=== PATIENT | female | born 1995 | race Caucasian/White ===

== ENCOUNTER 2019-04-01 10:10 | Emergency (ER) | payer BC ==
[2019-04-01] MEDS ORDERED: FLU Vacc QS2019-20(6MOS+)/PF 60 MCG/0.5 ML SYRINGE IM ONE (11:30)
[2019-04-01] MEDS ORDERED: Sodium Chloride 0.9% 10 ML Syringe FLUSH PRN (11:37)
--- NOTE | 2019-04-01 12:04 | EDM.PDOC ---
<Ashvin Chavez - Last Filed: 04/06/19 09:57> ED HPI GENERAL MEDICAL PROBLEM - General Chief Complaint: Eye Problems Stated Complaint: EYE COMPLAINT Time Seen by Provider: 04/01/19 11:20 - Related Data Allergies Allergy/AdvReac Type Severity Reaction Status Date / Time No Known Allergies Allergy Verified 04/01/19 10:44 Home Meds: Home Meds Cholecalciferol (Vitamin D3) [Vitamin D3] 5,000 unit PO DAILY 04/01/19 [History] FLUoxetine [PROzac] 60 mg PO DAILY 04/01/19 [History] Hydrocodone/Acetaminophen [Hydrocodon-Acetaminophen 5-325] 1 - 2 tab PO Q6HR PRN 04/01/19 [History] Levothyroxine 175 mcg PO DAILY 04/01/19 [History] Course - Vital Signs Last Recorded V/S: Last Vital Signs Temp 96.9 F 04/01/19 10:39 Pulse 86 04/01/19 10:39 Resp 18 04/01/19 10:39 BP 130/88 04/01/19 10:39 Pulse Ox 99 04/01/19 10:39 Orthostatic Blood Pressure [ 121/80 Standing] Orthostatic Blood Pressure [ 121/74 Sitting] Orthostatic Blood Pressure [ 111/73 Supine] - Orders/Labs/Meds Labs: Laboratory Tests 04/01/19 04/01/19 Range/Units 12:15 12:15 WBC 7.06 (3.98-10.04) K/mm3 RBC 4.66 (3.98-5.22) M/mm3 Hgb 14.1 (11.2-15.7) gm/dl Hct 41.7 (34.1-44.9) % MCV 89.5 (79.4-94.8) fl MCH 30.3 (25.6-32.2) pg MCHC 33.8 (32.2-35.5) g/dl RDW Std Deviation 44.6 (36.4-46.3) fL Plt Count 327 (182-369) K/mm3 MPV 9.0 L (9.4-12.3) fl Neut % (Auto) 50.7 (34.0-71.1) % Lymph % (Auto) 38.7 (19.3-51.7) % [place] % (Auto) 9.1 (4.7-12.5) % Eos % (Auto) 1.1 (0.7-5.8) Baso % (Auto) 0.3 (0.1-1.2) % Neut # (Auto) 3.58 (1.56-6.13) K/mm3 Lymph # (Auto) 2.73 (1.18-3.74) K/mm3 [place] # (Auto) 0.64 H (0.24-0.36) K/mm3 Eos # (Auto) 0.08 (0.04-0.36) K/mm3 Baso # (Auto) 0.02 (0.01-0.08) K/mm3 Sodium 138 (136-145) mEq/L Potassium 3.9 (3.5-5.1) mEq/L Chloride 102 (98-107) mEq/L Carbon Dioxide 27 (21-32) mEq/L Anion Gap 12.9 (5-15) BUN 12 (7-18) mg/dL Creatinine 0.6 (0.55-1.02) mg/dL Est Cr Clr Drug Dosing 134.18 mL/min Estimated GFR (MDRD) > 60 (>60) mL/min BUN/Creatinine Ratio 20.0 H (14-18) Glucose 88 (74-106) mg/dL Calcium 8.9 (8.5-10.1) mg/dL Total Bilirubin 0.2 (0.2-1.0) mg/dL AST 15 (15-37) U/L ALT 25 (14-59) U/L Alkaline Phosphatase 89 (46-116) U/L Total Protein 8.1 (6.4-8.2) g/dl Albumin 3.9 (3.4-5.0) g/dl Globulin 4.2 gm/dL Albumin/Globulin Ratio 0.9 L (1-2) Meds: Medications Discontinued Medications Generic Name Dose Route Start Last Admin Trade Name Freq PRN Reason Stop Dose Admin Gadobenate Dimeglumine 20 ml 04/01/19 13:37 04/01/19 14:34 Multihance IVPUSH 04/01/19 13:38 20 ml ONETIME ONE Administration Influenza Virus Vaccine 60 mcg 04/01/19 11:30 04/01/19 12:03 Fluzone Quad Syringe IM 04/01/19 11:31 60 mcg .ONCE ONE Administration Sodium Chloride 10 ml 04/01/19 11:37 04/01/19 12:02 Saline Flush FLUSH 10 ml ASDIRECTED PRN Administration Keep Vein Open Sodium Chloride 30 ml 04/01/19 13:45 04/01/19 14:34 Saline Flush FLUSH 30 ml ASDIRECTED JONATHAN Administration - Re-Assessments/Exams Free Text/Narrative Re-Assessment/Exam: 04/01/19 15:14 MRI brain with and without intravenous contrast. Comparison no prior intracranial imaging. Findings. Empty sella is noted. Residual enhancing tissue seen along the pituitary floor. No pituitary masses appreciated. Cavernous sinuses appear within normal limits. Infundibulum is slightly tilted to the right side which is likely residual from previous surgery. No abnormal enhancement is seen within the brain parenchyma. Ventricles along with the basal cisterns and sulci over the convexities are within normal limits. Normal signal void is seen within the major cerebral arteries within the base of the skull. Previous right cerebellar surgery is appreciated. No abnormal signal is seen from within the posterior fossa. No abnormal enhancement is seen within the cerebellum. Impression 1 empty sella compatible with previous surgery. 2 previous surgery within the right cerebellum with no persistent abnormal enhancement or abnormal signal. 3 no findings of recurrent tumor are seen at this time Departure - Departure Disposition: Home, Self-Care 01 Clinical Impression: Headache, Visual field defect of both eyes, History of pituitary adenoma - Discharge Information Instructions: General Headache Without Cause, [id number] Referrals: Cristina Cronin MD [Primary Care Provider] - Forms: ED Department Discharge Additional Instructions: MRI according to our Radiologist report does not show recurrent tumor at this time. Dr Aranda did see bilateral papilledema on your eye exam today. I would suggest calling the office of your Food Services Director, [facility] tomorrow AM for further guidance. You may also follow up with Dr Muñoz or Dr Castillo as needed or return to ED as needed if symptoms worsening in any way. <Yoandy Lora - Last Filed: 04/06/19 15:12> ED HPI GENERAL MEDICAL PROBLEM - General Source of Information: Reports: Patient, RN Notes Reviewed - History of Present Illness INITIAL COMMENTS - FREE TEXT/NARRATIVE: 23 year old female has been sent here by Dr Aranda, [address] [employer] for further eval of what may be recurrent pituitary adenoma. She was diagnosed with pituitary adenoma just over 3 yrs ago, had transsphenoidal resection of her pituitary at August about 3 yrs ago. She than did have Gamma knife surgery this past October about 4 to 5 months ago. She has been having increasing Diamond's the past several weeks, now also starting to have some visual blurriness of vision and intermitent "triangular spots central and peripheral vision" There has been no nausea or vomiting. Some voiding frequency. 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 Denies: Eye Pain, Sinus Problem, Throat Pain Respiratory: Denies: Shortness of Breath Cardiovascular: Denies: Chest Pain GI/Abdominal: Denies: Abdominal Pain, Nausea, Vomiting Musculoskeletal: Denies: Neck Pain, Back Pain Skin: Reports: No Symptoms Neurological: Reports: Dizziness, Headache. Denies: Numbness, Tingling, Trouble Speaking, Weakness ED EXAM GENERAL W FULL EYE - Physical Exam Exam: See Below General Appearance: Alert, No Apparent Distress Eye Exam: Bilateral Eye: PERRL, Other (EOM nl, no scleral injection) Conjunctiva & Sclera: Bilateral: Normal Appearance Cornea Exam: Bilateral: Normal Appearance Extraocular Movements: Bilateral: Intact Ears: Normal External Exam Nose: Normal Inspection Throat/Mouth: Normal Inspection, Normal Oropharynx Head: Atraumatic. No: Facial Swelling Neck: Supple, Full Range of Motion Respiratory/Chest: No Respiratory Distress, Lungs Clear, Normal Breath Sounds Cardiovascular: Regular Rate, Rhythm Extremities: Normal Inspection, Normal Range of Motion Neurological: Alert, Oriented, No Motor/Sensory Deficits, Other (finger to nose testing nl) Skin Exam: Warm, Dry, Normal Color, No Rash Course - Orders/Labs/Meds Labs: Laboratory Tests 04/01/19 04/01/19 Range/Units 12:15 12:15 WBC 7.06 (3.98-10.04) K/mm3 RBC 4.66 (3.98-5.22) M/mm3 Hgb 14.1 (11.2-15.7) gm/dl Hct 41.7 (34.1-44.9) % MCV 89.5 (79.4-94.8) fl MCH 30.3 (25.6-32.2) pg MCHC 33.8 (32.2-35.5) g/dl RDW Std Deviation 44.6 (36.4-46.3) fL Plt Count 327 (182-369) K/mm3 MPV 9.0 L (9.4-12.3) fl Neut % (Auto) 50.7 (34.0-71.1) % Lymph % (Auto) 38.7 (19.3-51.7) % [place] % (Auto) 9.1 (4.7-12.5) % Eos % (Auto) 1.1 (0.7-5.8) Baso % (Auto) 0.3 (0.1-1.2) % Neut # (Auto) 3.58 (1.56-6.13) K/mm3 Lymph # (Auto) 2.73 (1.18-3.74) K/mm3 [place] # (Auto) 0.64 H (0.24-0.36) K/mm3 Eos # (Auto) 0.08 (0.04-0.36) K/mm3 Baso # (Auto) 0.02 (0.01-0.08) K/mm3 Sodium 138 (136-145) mEq/L Potassium 3.9 (3.5-5.1) mEq/L Chloride 102 (98-107) mEq/L Carbon Dioxide 27 (21-32) mEq/L Anion Gap 12.9 (5-15) BUN 12 (7-18) mg/dL Creatinine 0.6 (0.55-1.02) mg/dL Est Cr Clr Drug Dosing 134.18 mL/min Estimated GFR (MDRD) > 60 (>60) mL/min BUN/Creatinine Ratio 20.0 H (14-18) Glucose 88 (74-106) mg/dL Calcium 8.9 (8.5-10.1) mg/dL Total Bilirubin 0.2 (0.2-1.0) mg/dL AST 15 (15-37) U/L ALT 25 (14-59) U/L Alkaline Phosphatase 89 (46-116) U/L Total Protein 8.1 (6.4-8.2) g/dl Albumin 3.9 (3.4-5.0) g/dl Globulin 4.2 gm/dL Albumin/Globulin Ratio 0.9 L (1-2) - Radiology Interpretation Free Text/Narrative:: MRI of the brain did not show any evidence for tumor reocurrance. See Radiology report for details. - Re-Assessments/Exams Free Text/Narrative Re-Assessment/Exam: 04/06/19 15:11 Neuro exam was nl as documented. NAD while here in the ED. Visual exam info. was obtained from clinic and reviewed. Discharge instr. as documented. Pt advised to contact her Food Services Director next AM, Pt understands and is agreeable with that plan. Departure - Departure Time of Disposition: 16:20 Condition: Fair
[2019-04-01] MEDS ORDERED: Gadobenate Dimeglumine 529 MG/ML 20 ML SDV IVPUSH ONE (13:37)
[2019-04-01] MEDS ORDERED: Sodium Chloride 0.9% 10 ML Syringe FLUSH SCH (13:45)
--- NOTE | 2019-04-01 15:18 | MR ---
MRI brain (without and with intravenous contrast) Technique: T1 sagittal; T2, T2 FLAIR, T1 and diffusion axial; T1 FLAIR coronal; T1 coronal and sagittal images were obtained through the pituitary gland. Study was repeated after contrast administration. Post contrast axial and T1 and FLAIR coronal images were also obtained through the brain. Comparison: No prior intracranial imaging. Findings: Empty sella is noted. Residual enhancing tissue is seen along the pituitary floor. No pituitary mass is appreciated. Cavernous sinuses appear within normal limits. Infundibulum is slightly tilted to the right side which is likely residual from previous surgery. No abnormal enhancement is seen within the brain parenchyma. Ventricles along with basal cisterns and sulci over convexities are within normal limits. Normal signal void is seen within the major cerebral arteries within the skull base. Previous right cerebellar surgery is seen. No abnormal signal is seen within the posterior fossa. No abnormal enhancement is seen within the cerebellum. Impression: 1. Empty sella compatible with previous surgery. 2. Previous surgery within the right cerebellum with no persistent abnormal enhancement or abnormal signal. 3. No findings of recurrent tumor are seen at this time. Diagnostic code #2 This report was dictated in [place] Standard Time
== END 2019-04-01 16:49 | disposition home or self-care (01) ==
LOC: JD.ED 10:10
DX: R51 Headache (principal); H53.40 Unspecified visual field defects; H47.10 Unspecified papilledema; Z86.018 Personal history of other benign neoplasm; Z23 Encounter for immunization
CPT/HCPCS: 36415; 70553; 80053; 85025; 90471; 90686; 99284; A9577; G0008

== ENCOUNTER 2021-04-19 07:03 | Inpatient (IN) | payer BC ==
[2021-04-19] MEDS ORDERED: Nalbuphine 10 MG/1 ML Vial IVPUSH PRN (07:13)
[2021-04-19] MEDS ORDERED: Ondansetron 4 MG/2 ML SDV IVPUSH PRN (07:13)
[2021-04-19] MEDS ORDERED: Calcium Carbonate 500 MG Tab.Chew PO PRN (07:13)
[2021-04-19] MEDS ORDERED: Oxytocin/Lactated Ringers 10 UNIT/1,000 ML BAG IV SCH ×2 (07:15)
--- NOTE | 2021-04-19 07:15 | PCM.LDHP ---
L&D History of Present Illness - General Date of Service: 04/19/21 Admit Problem/Dx: Admission Diagnosis/Problem Admission Diagnosis/Problem Source of Information: Patient History Limitations: Reports: No Limitations - History of Present Illness Introduction:: 25 year old at 39+ weeks here for induction of labor. care with myself without complications. Did see MFM regarding history of endocrine - Related Data Allergies/Adverse Reactions: Allergies Allergy/AdvReac Type Severity Reaction Status Date / Time No Known Allergies Allergy Verified 04/01/19 10:44 Home Medications: Home Meds Cholecalciferol (Vitamin D3) [Vitamin D3] 5,000 unit PO DAILY 04/01/19 [History] FLUoxetine [PROzac] 60 mg PO DAILY 04/01/19 [History] Hydrocodone/Acetaminophen [Hydrocodon-Acetaminophen 5-325] 1 - 2 tab PO Q6HR PRN 04/01/19 [History] Levothyroxine 175 mcg PO DAILY 04/01/19 [History] Past Medical History HEENT History: Reports: Other (See Below) Other HEENT History: Papilledema Neurological History: Reports: Migraines 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, Hypothyroidism, Vitamin D Deficiency - Past Surgical History Endocrine Surgical History: Reports: Other (See Below) Other Endocrine Surgeries/Procedures: pituitary radiosurgery - pituitary surgery Social & Family History - Caffeine Use Caffeine Use: Reports: Coffee, Energy Drinks, Soda, Tea H&P Review of Systems - Review of Systems: Review Of Systems: See Below General: Reports: No Symptoms HEENT: Reports: No Symptoms Pulmonary: Reports: No Symptoms Cardiovascular: Reports: No Symptoms Gastrointestinal: Reports: No Symptoms Genitourinary: Reports: No Symptoms Musculoskeletal: Reports: No Symptoms Skin: Reports: No Symptoms Psychiatric: Reports: No Symptoms Neurological: Reports: No Symptoms Hematologic/Lymphatic: Reports: No Symptoms Immunologic: Reports: No Symptoms L&D Exam - Exam Exam: See Below - OB Specific Contraction Intensity: Irritability Movement: Active Heart Tones: Present Heart Rate (FHR) Variability: Moderate (6-25 bpm) Presentation: Vertex - Gonzales Score Gonzales Score Cervix Position: Midposition Gonzales Score Consistency: Soft Gonzales Score Effacement: 51-70% Gonzales Score Dilation: 1-2 cm Gonzales Score 's Station: -2 Gonzales Score Total: 7 - Exam General: Alert, Oriented HEENT: PERRLA, Conjunctiva Clear, EACs Clear, EOMI, Hearing Intact, Mucosa Moist & [place], Nares Patent, Normal Nasal Septum, Posterior Pharynx Clear, TMs Clear Neck: Supple, Trachea Midline Lungs: Clear to Auscultation, Normal Respiratory Effort Cardiovascular: Regular Rate, Regular Rhythm GI/Abdominal Exam: Normal Bowel Sounds, Soft, Non-Tender, No Organomegaly, No Distention, No Abnormal Bruit, No Mass, Pelvis Stable Genitourinary: Normal external exam, Normal bimanual exam, Normal speculum exam Back Exam: Normal Inspection, Full Range of Motion Extremities: Normal Inspection, Normal Range of Motion, Non-Tender, No Pedal Edema, Normal Capillary Refill Skin: Warm, Dry, Intact Neurological: Cranial Nerves Intact, Reflexes Equal Bilateral Psychiatric: Alert, Normal Affect, Normal Mood Problem List Initiated/Reviewed/Updated: Yes Assessment/Plan Comment:: Term induction. Plans epidural. Anticipate unless otherwise indicated
[2021-04-19] MEDS ORDERED: Misoprostol 25 MCG (1/4 of 100 MCG) Tab VAG ONE ×2 (07:43→12:00)
--- NOTE | 2021-04-19 11:49 | PCM.PREANE ---
Preanesthetic Assessment - Procedure Proposed Procedure: yanira - Anesthesia/Transfusion/Family Hx Anesthesia History: Prior Anesthesia Without Reaction Family History of Anesthesia Reaction: No Transfusion History: No Prior Transfusion(s) - Review of Systems General: No Symptoms Pulmonary: No Symptoms Cardiovascular: No Symptoms Gastrointestinal: No Symptoms Neurological: No Symptoms Other: Reports: Thyroid Problems, Sinus Problem, Depression, Anxiety - Physical Assessment Vital Signs: Last Vital Signs Temp 98.2 F 04/19/21 07:13 Pulse 92 04/19/21 07:13 Resp 16 04/19/21 07:13 BP 140/90 04/19/21 07:13 Pulse Ox 97 04/19/21 07:13 Height: 5 ft 6 in Weight: 114.85 kg ASA Class: 2 Mental Status: Alert & Oriented x3 Dentition: Reports: Normal Dentition ROM/Head Extension: Full - Lab Values: Laboratory Last Values WBC 7.50 K/mm3 (3.98-10.04) 04/19/21 07:25 RBC 3.76 M/mm3 (3.98-5.22) L 04/19/21 07:25 Hgb 10.6 gm/dl (11.2-15.7) L D 04/19/21 07:25 Hct 32.9 % (34.1-44.9) L 04/19/21 07:25 MCV 87.5 fl (79.4-94.8) 04/19/21 07:25 MCH 28.2 pg (25.6-32.2) 04/19/21 07:25 MCHC 32.2 g/dl (32.2-35.5) 04/19/21 07:25 RDW Std Deviation 44.1 fL (36.4-46.3) 04/19/21 07:25 Plt Count 229 K/mm3 (182-369) D 04/19/21 07:25 MPV 10.9 fl (9.4-12.3) 04/19/21 07:25 Neut % (Auto) 61.7 % (34.0-71.1) 04/19/21 07:25 Lymph % (Auto) 28.4 % (19.3-51.7) 04/19/21 07:25 [place] % (Auto) 7.7 % (4.7-12.5) 04/19/21 07:25 Eos % (Auto) 1.6 (0.7-5.8) 04/19/21 07:25 Baso % (Auto) 0.3 % (0.1-1.2) 04/19/21 07:25 Neut # (Auto) 4.63 K/mm3 (1.56-6.13) 04/19/21 07:25 Lymph # (Auto) 2.13 K/mm3 (1.18-3.74) 04/19/21 07:25 [place] # (Auto) 0.58 K/mm3 (0.24-0.36) H 04/19/21 07:25 Eos # (Auto) 0.12 K/mm3 (0.04-0.36) 04/19/21 07:25 Baso # (Auto) 0.02 K/mm3 (0.01-0.08) 04/19/21 07:25 BUN 9 mg/dL (7-18) 04/19/21 07:25 Creatinine 0.7 mg/dL (0.55-1.02) 04/19/21 07:25 Est Cr Clr Drug Dosing 113.01 mL/min 04/19/21 07:25 Estimated GFR (MDRD) > 60 mL/min (>60) 04/19/21 07:25 Uric Acid 4.5 mg/dL (2.6-6.0) 04/19/21 07:25 AST 28 U/L (15-37) 04/19/21 07:25 ALT 17 U/L (14-59) 04/19/21 07:25 Lactate Dehydrogenase 193 U/L (81-234) 04/19/21 07:25 Ur Random Creatinine 71.9 mg/dL (30.0-125.0) 04/19/21 10:40 U Random Total Protein 27.4 mg/dL (0.0-11.8) H 04/19/21 10:40 Protein/Creatinin Ratio 381.1 mg/g (0-149) H 04/19/21 10:40 SARS-CoV-2 RNA (RADHIKA) Negative (NEGATIVE) 04/19/21 08:08 Blood Type B POSITIVE 04/19/21 07:25 Gel Antibody Screen Negative 04/19/21 07:25 - Allergies Allergies/Adverse Reactions: Allergies Allergy/AdvReac Type Severity Reaction Status Date / Time No Known Allergies Allergy Verified 12/21/21 07:12 - Blood Blood Available: No - Acknowledgements Anesthesia Type Planned: Epidural Pt an Appropriate Candidate for the Planned Anesthesia: Yes Alternatives and Risks of Anesthesia Discussed w Pt/Guardian: Yes Pt/Guardian Understands and Agrees with Anesthesia Plan: Yes PreAnesthesia Questionnaire HEENT History: Reports: Other (See Below) Other HEENT History: Papilledema, intracranial hypertension Cardiovascular History: Reports: None Respiratory History: Reports: None Gastrointestinal History: Reports: GERD PROFESSOR OF PHYSICS History: Reports: : 1 Para: 0 Neurological History: Reports: Migraines Psychiatric History: Reports: Anxiety, Depression Endocrine/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, Hypothyroidism, Obesity/BMI 30+, Vitamin D Deficiency Oncologic (Cancer) History: Reports: None - Past Surgical History Head Surgeries/Procedures: Reports: Other (See Below) (pituitary tumor) HEENT Surgical History: Reports: Naso-Sinus Surgery Endocrine Surgical History: Reports: Other (See Below) Other Endocrine Surgeries/Procedures: pituitary radiosurgery - pituitary surgery - SUBSTANCE USE Tobacco Use Status *Q: Never Tobacco User Second Hand Smoke Exposure: No Recreational Drug Use History: No - HOME MEDS Home Medications: Home Meds Cholecalciferol (Vitamin D3) [Vitamin D3] 5,000 unit PO DAILY 04/01/19 [History] Levothyroxine 112 mcg PO DAILY 04/01/19 [History] Aspirin 81 mg PO DAILY 04/19/21 [History] Pnv No.95/Ferrous Fum/Folic AC [ Tablet] 1 tab PO DAILY 04/19/21 [History] hydrOXYzine pamoate [Vistaril] 25 mg PO DAILY 04/19/21 [History] - CURRENT (IN HOUSE) MEDS Current Meds: Current Medications Calcium Carbonate/Glycine (Calcium Carbonate 500 Mg Tab.Chew) 1,000 mg PO Q2H PRN PRN Reason: Indigestion Oxytocin/Lactated Ringer's (Pitocin In Lr 10 Units/1,000 Ml) 10 unit in 1,000 mls @ 12 mls/hr IV TITRATE JONATHAN; Protocol Oxytocin/Lactated Ringer's (Pitocin In Lr 10 Units/1,000 Ml) 10 unit in 1,000 mls @ 500 mls/hr IV .CONTINUOUS JONATHAN Lactated Ringer's (Ringers, Lactated) 1,000 mls @ 100 mls/hr IV ASDIRECTED JONATHAN Misoprostol (Misoprostol 25 Mcg (/4 Of 100 Mcg) Tab) 25 mcg VAG ONETIME ONE Stop: 04/19/21 12:01 Nalbuphine HCl (Nalbuphine 10 Mg/1 Ml Vial) 10 mg IVPUSH Q2H PRN PRN Reason: Pain Ondansetron HCl (Ondansetron 4 Mg/2 Ml Sdv) 4 mg IVPUSH Q4H PRN PRN Reason: Nausea/Vomiting Sodium Chloride (Sodium Chloride 0.9% 10 Ml Syringe) 10 ml FLUSH 0900,2100 [facility] Discontinued Medications Misoprostol (Misoprostol 25 Mcg (1/ Of 100 Mcg) Tab) 50 mcg VAG ONETIME ONE Stop: 04/19/21 07:44 Last Admin: 04/19/21 07:54 Dose: 50 mcg Documented by:
[2021-04-19] MEDS ORDERED: diphenhydrAMINE 50 MG/ML SDV IVPUSH PRN (13:38)
[2021-04-19] MEDS ORDERED: ePHEDrine 50 MG/ML SDV IVPUSH PRN (13:38)
[2021-04-19] MEDS: Lactated Ringers 1,000 ML IV SCH ×3 (14:20→19:38)
[2021-04-19] MEDS: fentaNYL 100 MCG/2 ML SDV EPIDUR PRN (14:23)
[2021-04-19] MEDS: Bupivacaine/fentaNYL/NS 100 ML Bag EPIDUR PRN ×2 (14:24→22:19)
[2021-04-19] MEDS: Sodium Chloride 0.9% 10 ML Syringe FLUSH SCH (23:57)
[2021-04-20] MEDS: fentaNYL 100 MCG/2 ML SDV EPIDUR PRN (01:04)
[2021-04-20] MEDS ORDERED: Acetaminophen 325 MG Tab PO PRN (01:44)
[2021-04-20] MEDS ORDERED: Ampicillin 2 GM in Sodium Chloride 0.9% 100 ML IV SCH (01:45)
[2021-04-20] MEDS ORDERED: Gentamicin 40 MG/ML 20 ML MDV ONE (02:44)
[2021-04-20] MEDS ORDERED: Sodium Chloride 0.9% 100 ML ONE (02:46)
[2021-04-20] MEDS ORDERED: Gentamicin 180 MG in Sodium Chloride 0.9% 100 ML IV SCH ×2 (03:00)
[2021-04-20] MEDS: Bupivacaine/fentaNYL/NS 100 ML Bag EPIDUR PRN (03:24)
--- NOTE | 2021-04-20 05:17 | PCM.SN.2 ---
- Free Text/Narrative Note: Patient without significantly painful contractions. Attempted to place cook catheter but cervix significantly posterior and patient did not tolerate. Cervix 1 cm. Reassuring monitoring. Elevated blood pressures - continue with induction. No severe range so will not use magnesium.
--- NOTE | 2021-04-20 05:18 | PCM.SN.2 ---
- Free Text/Narrative Note: AROM clear fluid. IUPC placed. Patient tolerated well. comfortable with epidural. 3.5 cm/80/anterior/-2
--- NOTE | 2021-04-20 05:19 | PCM.SN.2 ---
- Free Text/Narrative Note: Tmax 101.2 at 126. Ampicillin and Gentamycin started.
--- NOTE | 2021-04-20 05:23 | PCM.SN.2 ---
- Free Text/Narrative Note: Stage I - patient presented for induction of labor. Cytotec. AROM clear fluid at 7pm. IUPC placed. Pitocin continued. Temperature to 101.2 at 0126 on 04.20.21. Treated for chorio with amp/gent. Progressed to complete. Stage II - of viable female, weight and apgars pending at 0454. Head delivered in controlled manner over intact perineum. Body and shoulders atraumatically. To maternal abdomen. Positive cry. Cord clamped and cut at 3 minutes of life. Cord blood collected. c Stage III - Placenta delivered spontaneous and intact. 3vc. 2nd degree midline laceration repaired with 3-0 vicryl. EBL 300
[2021-04-20] MEDS ORDERED: Benzocaine/Menthol 20%-0.5% Spray 78 GM Cannister TOP PRN (06:17)
[2021-04-20] MEDS ORDERED: Witch Hazel Medicated Pads 40/Jar TOP PRN (06:17)
[2021-04-20] MEDS ORDERED: Bupivacaine 0.25% 10 ML SDV ONE (06:18)
--- NOTE | 2021-04-20 10:08 | PCM48HPAN ---
Post Anesthesia Note - EVALUATION WITHIN 48HRS OF ANESTHETIC Vital Signs in Normal Range: Yes Patient Participated in Evaluation: Yes Respiratory Function Stable: Yes Airway Patent: Yes Cardiovascular Function Stable: Yes Hydration Status Stable: Yes Pain Control Satisfactory: Yes Nausea and Vomiting Control Satisfactory: Yes Mental Status Recovered: Yes Vital Signs: Last Vital Signs Temp 100.5 F 04/20/21 02:50 Pulse 87 04/20/21 06:05 Resp 16 04/19/21 07:13 BP 147/80 H 04/20/21 06:05 Pulse Ox 99 04/19/21 15:00 - COMMENTS/OBSERVATIONS Free Text/Narrative:: Patient resting in bed holding baby when visiting with patient. Patient stated that she was "very happy" with her epidural and labor experience. Patient complained of mild back pain in epidural placement site but is controlled and has not gotten worse. Discussed signs and symptoms of infection, post-dural puncture headaches, post- depression, and if patient experiences increased back discomfort. Encouraged patient if any of those signs or symptoms develop to contact OB/Anesthesia so the patient can be treated accordingly if needed. Patient verbalized understanding. Patient did not voice any questions or concerns at this time. Payton Mendez, PIPELINES SUPERVISOR
[2021-04-20] MEDS: Ibuprofen 600 MG Tab PO PRN (20:49)
[2021-04-21] MEDS: Ibuprofen 600 MG Tab PO PRN (10:44)
--- NOTE | 2021-04-21 13:10 | PCM.SN.2 ---
- Free Text/Narrative Note: Post Progress Note PPD #1 Subjective: Doing well overall. Ambulating without difficulty. Lochia minimal. Voiding without difficulty. Tolerating regular diet without nausea or vomiting. Pain controlled with oral medications. Breast-feeding with minimal difficulty. Denies any headaches, vision changes or epigastric pain. Objective: Vitals: Vital Signs - 24 hr 04/20/21 04/20/21 04/21/21 15:08 20:23 02:31 Temperature 36.8 C 37.5 C 36.4 C Pulse, 89 82 66 Peripheral Respiratory 16 16 16 Rate Blood Pressure 137/79 137/85 132/76 O2 Sat by Pulse 97 99 97 Oximetry Physical Exam General: Alert and oriented, no acute distress Lungs: Clear to auscultation bilaterally Heart: Regular rate and rhythm Abdomen: Soft, minimal appropriate tenderness, non-distended, fundus midline, nontender, and at the umbilicus Extremities: 1+ edema in bilateral lower extremities to mid shins, no calf tenderness bilaterally ASSESSMENT: 25-year-old female -0-0-1 s/p normal vaginal delivery PPD #1, complicated by preeclampsia without severe features during labor, chorioamnionitis and treated with ampicillin and gentamicin, hypothyroidism and Kwaku's disease PLAN: Doing well Breast-feeding with minimal difficulty. Assist as needed Lochia minimal. Continue to monitor for appropriate lochia. Continue routine care No severe features of preeclampsia at this time. Blood pressures have normalized at this time. No significant evidence of concern at this time Anticipate discharge home tomorrow Mode Lau MD 1:09 PM 04/21/2021
[2021-04-21] MEDS ORDERED: Docusate Sodium 100 MG Cap PO PRN (20:17)
[2021-04-22] MEDS: Ibuprofen 600 MG Tab PO PRN (03:01)
--- NOTE | 2021-04-22 07:27 | PCM.DCSUM1 ---
Discharge Summary - Hospital Course Diagnosis: Stroke: No - Discharge Data Discharge Date: 04/22/21 Discharge Disposition: Home, Self-Care 01 Condition: Good - Referral to Home Health Primary Care Physician: Cristina Cronin MD - Patient Summary/Data Hospital Course: Unremarkable labor, delivery and - Patient Instructions Diet: Usual Diet as Tolerated Activity: No Strenuous Activities Driving: May Drive Today Notify Provider of: Fever, Increased Pain, Swelling and Redness, Drainage, Nausea and/or Vomiting - Discharge Plan *PRESCRIPTION DRUG MONITORING PROGRAM REVIEWED*: No *COPY OF PRESCRIPTION DRUG MONITORING REPORT IN PATIENT EZEKIEL: No Home Medications: Home Meds Cholecalciferol (Vitamin D3) [Vitamin D3] 5,000 unit PO DAILY 04/01/19 [History] Levothyroxine 112 mcg PO DAILY 04/01/19 [History] Aspirin 81 mg PO DAILY 04/19/21 [History] Pnv No.95/Ferrous Fum/Folic AC [ Tablet] 1 tab PO DAILY 04/19/21 [His tory] hydrOXYzine pamoate [Vistaril] 25 mg PO DAILY 04/19/21 [History] Referrals: Joyce Sewell MD [Family Provider] - (2 weeks) - Discharge Summary/Plan Comment DC Time >30 min.: No Total # of Minutes for Discharge Time: 15 min - General Info Date of Service: 04/22/21 Functional Status: Reports: Pain Controlled - Review of Systems General: Reports: No Symptoms HEENT: Reports: No Symptoms Pulmonary: Reports: No Symptoms Cardiovascular: Reports: No Symptoms Gastrointestinal: Reports: No Symptoms Genitourinary: Reports: No Symptoms Musculoskeletal: Reports: No Symptoms Skin: Reports: No Symptoms Neurological: Reports: No Symptoms Psychiatric: Reports: No Symptoms - Patient Data Vitals - Most Recent: Last Vital Signs Temp 36.5 C 04/22/21 02:48 Pulse 81 04/22/21 02:48 Resp 16 04/22/21 02:48 BP 140/80 04/22/21 02:48 Pulse Ox 98 04/22/21 02:48 Weight - Most Recent: 114.85 kg Med Orders - Current: Current Medications Benzocaine/Menthol (Benzocaine/Menthol 20%-0.5% [place] 78 Gm Cannister) 0 gm TOP ASDIRECTED PRN PRN Reason: Perineal Comfort Measure Docusate Sodium (Docusate Sodium 100 Mg Cap) 100 mg PO Q8H PRN PRN Reason: Constipation Last Admin: 04/22/21 03:01 Dose: 100 mg Documented by: Ibuprofen (Ibuprofen 600 Mg Tab) 600 mg PO Q6H PRN PRN Reason: Mild pain or fever Last Admin: 04/22/21 03:01 Dose: 600 mg Documented by: Davida Lomeli (Tiarrach Yani Medicated Pads 40/Jar) 1 pad TOP ASDIRECTED PRN PRN Reason: Perineal Comfort Measure Discontinued Medications Acetaminophen (Acetaminophen 325 Mg Tab) 650 mg PO Q6H PRN PRN Reason: Pain (mild 1-3) Last Admin: 04/20/21 02:20 Dose: 650 mg Documented by: Bupivacaine HCl (Bupivacaine 0.25% 10 Ml Sdv) 20 ml .ROUTE .STK-MED ONE Stop: 04/20/21 06:19 Calcium Carbonate/Glycine (Calcium Carbonate 500 Mg Tab.Chew) 1,000 mg PO Q2H PRN PRN Reason: Indigestion Diphenhydramine HCl (Diphenhydramine 50 Mg/Ml Sdv) 25 mg IVPUSH Q6H PRN PRN Reason: pruritis Ephedrine Sulfate (Ephedrine 50 Mg/Ml Sdv) 5 mg IVPUSH ASDIRECTED PRN PRN Reason: Hypotension Fentanyl (Fentanyl 100 Mcg/2 Ml Sdv) 100 mcg EPIDUR Q3H PRN PRN Reason: Pain Last Admin: 04/20/21 01:04 Dose: 100 mcg Documented by: Fentanyl/Bupivacaine HCl (Bupivacaine/Fentanyl/Ns 100 Ml Bag) 100 ml EPIDUR ASDIRECTED PRN PRN Reason: Pain Last Admin: 04/20/21 03:24 Dose: 100 ml Documented by: Gentamicin Sulfate (Pharmacy To Dose - Gentamicin) 1 dose .XX ASDIRECTED JONATHAN Gentamicin Sulfate (Gentamicin 40 Mg/Ml 20 Ml Mdv) Confirm Administered Dose 40 mg .ROUTE .STK-MED ONE Stop: 04/20/21 02:45 Last Admin: 04/20/21 06:30 Dose: Not Given Documented by: Oxytocin/Lactated Ringer's (Pitocin In Lr 10 Units/1,000 Ml) 10 unit in 1,000 mls @ 12 mls/hr IV TITRATE JONATHAN; Protocol Last Titration: 04/20/21 04:54 Dose: 83.33 munits/min, 500 mls/hr Documented by: Oxytocin/Lactated Ringer's (Pitocin In Lr 10 Units/1,000 Ml) 10 unit in 1,000 mls @ 500 mls/hr IV .CONTINUOUS [facility] Lactated Ringer's (Ringers, Lactated) 1,000 mls @ 100 mls/hr IV ASDIRECTED [facility] Last Admin: 04/19/21 19:38 Dose: 100 mls/hr Documented by: Ampicillin Sodium 2 gm/ Sodium (Chloride) 100 mls @ 200 mls/hr IV Q6H [facility] Last Admin: 04/20/21 01:48 Dose: 200 mls/hr Documented by: Gentamicin Sulfate 180 mg/ (Sodium Chloride) 104.5 mls @ 104.5 mls/hr IV Q8H [facility] Gentamicin Sulfate 180 mg/ (Sodium Chloride) 104.5 mls @ 104.5 mls/hr IV Q8H [facility] Last Admin: 04/20/21 02:55 Dose: 104.5 mls/hr Documented by: Sodium Chloride (Normal Saline) Confirm Administered Dose 100 mls @ as directed .ROUTE .STK-MED ONE Stop: 04/20/21 02:47 Last Admin: 04/20/21 06:30 Dose: Not Given Documented by: Misoprostol (Misoprostol 25 Mcg (1/4 Of 100 Mcg) Tab) 50 mcg VAG ONETIME ONE Stop: 04/19/21 07:44 Last Admin: 04/19/21 07:54 Dose: 50 mcg Documented by: Misoprostol (Misoprostol 25 Mcg (1/4 Of 100 Mcg) Tab) 25 mcg VAG ONETIME ONE Stop: 04/19/21 12:01 Last Admin: 04/19/21 12:47 Dose: 25 mcg Documented by: Nalbuphine HCl (Nalbuphine 10 Mg/1 Ml Vial) 10 mg IVPUSH Q2H PRN PRN Reason: Pain Ondansetron HCl (Ondansetron 4 Mg/2 Ml Sdv) 4 mg IVPUSH Q4H PRN PRN Reason: Nausea/Vomiting Sodium Chloride (Sodium Chloride 0.9% 10 Ml Syringe) 10 ml FLUSH 0900,2100 [facility] Last Admin: 04/19/21 23:57 Dose: Not Given Documented by: - Exam General: Reports: Alert, Oriented HEENT: Reports: Pupils Equal, Pupils Reactive, EOMI, Mucous Membr. Moist/[place] Neck: Reports: Supple Lungs: Reports: Clear to Auscultation, Normal Respiratory Effort Cardiovascular: Reports: Regular Rate, Regular Rhythm GI/Abdominal Exam: Normal Bowel Sounds, Soft, Non-Tender, No Organomegaly, No Distention, No Abnormal Bruit, No Mass, Pelvis Stable Rectal (Female) Exam: Normal Exam, Normal Rectal Tone Back Exam: Reports: Normal Inspection, Full Range of Motion Extremities: Normal Inspection, Normal Range of Motion, Non-Tender, No Pedal Edema, Normal Capillary Refill Skin: Reports: Warm, Dry, Intact Wound/Incisions: Reports: Healing Well Neurological: Reports: No New Focal Deficit Psy/Mental Status: Reports: Alert, Normal Affect, Normal Mood
== END 2021-04-22 09:40 | disposition home or self-care (01) | DRG 560 ==
LOC: UNDOADMOB 07:03 → JD.OB 07:03 → OBSVTOIN 04-20 04:54 → INTOOBSV 04-20 04:54 → JD.OB 04-20 04:54 → UNDODISIN 04-22 09:40
PROVIDERS: ADMIT Obstetrics & Gynecology; ATTEND Obstetrics & Gynecology
PROC: 10E0XZZ Delivery of Products of Conception, External Approach (ICD-10-PCS; principal; 2021-04-20)
PROC: 10907ZC Drainage of Amniotic Fluid, Therapeutic from Products of Conception, Via Natural or Artificial Opening (ICD-10-PCS; 2021-04-20)
PROC: 3E0P7VZ Introduction of Hormone into Female Reproductive, Via Natural or Artificial Opening (ICD-10-PCS; 2021-04-20)
PROC: 3E033VJ Introduction of Other Hormone into Peripheral Vein, Percutaneous Approach (ICD-10-PCS; 2021-04-20)
PROC: 0KQM0ZZ Repair Perineum Muscle, Open Approach (ICD-10-PCS; 2021-04-20)
PROC: 3E0R3BZ Introduction of Anesthetic Agent into Spinal Canal, Percutaneous Approach (ICD-10-PCS; 2021-04-20)
PROC: 00HU33Z Insertion of Infusion Device into Spinal Canal, Percutaneous Approach (ICD-10-PCS; 2021-04-20)
PROC: 10H07YZ Insertion of Other Device into Products of Conception, Via Natural or Artificial Opening (ICD-10-PCS; 2021-04-20)
DX: O14.04 Mild to moderate pre-eclampsia, complicating childbirth (principal); O99.284 Endocrine, nutritional and metabolic diseases complicating childbirth; Z37.0 Single live birth; E55.9 Vitamin D deficiency, unspecified; E03.9 Hypothyroidism, unspecified; O41.1230 Chorioamnionitis, third trimester, not applicable or unspecified; O70.1 Second degree perineal laceration during delivery; O99.344 Other mental disorders complicating childbirth; F41.9 Anxiety disorder, unspecified; F32.A Depression, unspecified; Z20.822 Contact with and (suspected) exposure to COVID-19; Z3A.39 39 weeks gestation of pregnancy
CPT/HCPCS: 01967; 36415; 51702; 59025; 59409; 82565; 82570; 83615; 84156; 84450; 84460; 84520; 84550; 85025; 86592; 86850; 86900; 86901; A9270-GY; C1726; J0290; J1580; J2590; J3010; J3490; J7120; U0002

== ENCOUNTER 2022-04-05 01:44 | Emergency (ER) | payer BC, OTHER ==
[2022-04-05] MEDS ORDERED: Nitrofurantoin Monohydrate/Macrocrystalline 100 MG Cap PO ONE (04:15)
== END 2022-04-05 04:23 | disposition home or self-care (01) ==
LOC: JD.ED 01:44
DX: R10.10 Upper abdominal pain, unspecified (principal); I10 Essential (primary) hypertension; K21.9 Gastro-esophageal reflux disease without esophagitis; E03.9 Hypothyroidism, unspecified; E66.9 Obesity, unspecified; Z68.38 Body mass index [BMI] 38.0-38.9, adult; Z79.899 Other long term (current) drug therapy
CPT/HCPCS: 36415; 81001; 85025; 99284; A9270

== ENCOUNTER 2023-03-31 07:07 | Inpatient (IN) | payer BC ==
[2023-03-31] MEDS ORDERED: Calcium Carbonate 500 MG Tab.Chew PO PRN (07:49)
[2023-03-31] MEDS ORDERED: Lidocaine 1% 50 ML MDV INJECT PRN (07:49)
[2023-03-31] MEDS ORDERED: Misoprostol 25 MCG (1/4 of 100 MCG) Tab VAG ONE ×2 (07:49→12:11)
[2023-03-31] MEDS ORDERED: Nalbuphine HCl 10 MG/ 1ML Amp IVPUSH PRN (07:49)
[2023-03-31 08:10] LABS: BASOPHILS PERCENT AUTO 0.1 % (0.0-1.0); EOSINOPHILS ABSOLUTE AUTO 0.1 K/mm3 (0.0-0.4); EOSINOPHILS PERCENT AUTO 0.8 % (0.0-6.0); HEMATOCRIT 35.3 % (37.0-47.0); HEMOGLOBIN 11.9 gm/dl (12.0-16.0); IMMATURE GRAN ABSOLUTE AUTO 0.02 K/mm3 (0.00-0.05); IMMATURE GRAN PERCENT AUTO 0.3 % (0.0-0.4); LYMPHOCYTES ABSOLUTE AUTO 2.4 K/mm3 (1.0-4.8); LYMPHOCYTES PERCENT AUTO 32.8 % (24.0-44.0); MEAN CORPUSCULAR HEMOGLOBIN 29.6 pg (28.0-32.0); MEAN CORPUSCULAR HGB CONC 33.7 g/dl (32.0-36.0); MEAN CORPUSCULAR VOLUME 87.8 fl (83.0-99.0); MEAN PLATELET VOLUME 9.9 fl (9.4-12.3); MONOCYTES ABSOLUTE AUTO 0.7 K/mm3 (0.0-0.8); MONOCYTES PERCENT AUTO 9.4 % (0.0-8.0); NEUTROPHILS ABSOLUTE AUTO 4.2 K/mm3 (1.8-7.7); NEUTROPHILS PERCENT AUTO 56.6 % (41.0-71.0); PLATELET COUNT,PLT 196 K/mm3 (150-400); RED BLOOD CELL COUNT 4.02 M/mm3 (4.10-5.30); WHITE BLOOD CELL COUNT,WBC 7.45 K/mm3 (3.9-11.3)
[2023-03-31] MEDS ORDERED: diphenhydrAMINE 50 MG/ML SDV IVPUSH PRN (08:53)
[2023-03-31] MEDS ORDERED: fentaNYL 100 MCG/2 ML SDV EPIDUR PRN (08:53)
[2023-03-31] MEDS ORDERED: ePHEDrine 50 MG/ML SDV IVPUSH PRN (08:53)
[2023-03-31] MEDS ORDERED: Bupivacaine/fentaNYL/NS 100 ML Bag EPIDUR PRN (08:53)
[2023-03-31] MEDS: Ondansetron 4 MG/2 ML SDV IVPUSH PRN ×2 (09:33→14:07)
[2023-03-31] MEDS ORDERED: Oxytocin/Lactated Ringers 30 UNIT/500 ML BAG IV SCH (12:30)
[2023-03-31] MEDS: Lactated Ringers 1,000 ML IV SCH ×2 (12:37→13:59)
[2023-03-31] MEDS ORDERED: Bupivacaine 0.25% 10 ML SDV ONE (18:00)
[2023-03-31] MEDS ORDERED: Witch Hazel Medicated Pads 40/Jar TOP PRN (22:01)
[2023-03-31] MEDS ORDERED: Ibuprofen 600 MG Tab PO PRN (22:01)
[2023-03-31] MEDS ORDERED: Benzocaine/Menthol 20%-0.5% Spray 78 GM Cannister TOP PRN (22:01)
[2023-03-31] MEDS ORDERED: Acetaminophen 325 MG Tab PO PRN (22:01)
== END 2023-04-01 19:00 | disposition home or self-care (01) | DRG 560 ==
LOC: JD.OB 07:07 → OBSVTOIN 18:36 → JD.OB 18:36
PROVIDERS: ADMIT Obstetrics & Gynecology; ATTEND Obstetrics & Gynecology
PROC: 10E0XZZ Delivery of Products of Conception, External Approach (ICD-10-PCS; principal; 2023-03-31)
PROC: 3E033VJ Introduction of Other Hormone into Peripheral Vein, Percutaneous Approach (ICD-10-PCS; 2023-03-31)
PROC: 10907ZC Drainage of Amniotic Fluid, Therapeutic from Products of Conception, Via Natural or Artificial Opening (ICD-10-PCS; 2023-03-31)
PROC: 3E033VJ Introduction of Other Hormone into Peripheral Vein, Percutaneous Approach (ICD-10-PCS; 2023-03-31)
PROC: 3E0R3BZ Introduction of Anesthetic Agent into Spinal Canal, Percutaneous Approach (ICD-10-PCS; 2023-03-31)
PROC: 00HU33Z Insertion of Infusion Device into Spinal Canal, Percutaneous Approach (ICD-10-PCS; 2023-03-31)
PROC: 0HQ9XZZ Repair Perineum Skin, External Approach (ICD-10-PCS; 2023-03-31)
DX: O99.284 Endocrine, nutritional and metabolic diseases complicating childbirth (principal); E03.9 Hypothyroidism, unspecified; O99.214 Obesity complicating childbirth; O70.0 First degree perineal laceration during delivery; Z3A.39 39 weeks gestation of pregnancy; Z37.0 Single live birth
CPT/HCPCS: 01967; 36415; 51702; 59025; 59409; 85025; 86592; 86850; 86900; 86901; A9270-GY; J1200; J2405; J3010; J3490; J7120; J7999

== ENCOUNTER 2024-01-04 19:01 | Emergency (ER) | payer BC ==
[2024-01-04] MEDS ORDERED: Naloxone 0.4 MG/ML SDV IVPUSH PRN (19:53)
[2024-01-04] MEDS: Sodium Chloride 0.9% 10 ML Syringe FLUSH PRN (20:30)
[2024-01-04] MEDS: HYDROmorphone 1 MG/ML Syringe IVPUSH ONE (20:30)
[2024-01-04] MEDS: Ondansetron 4 MG/2 ML SDV IVPUSH ONE (23:14)
== END 2024-01-05 00:33 | disposition home or self-care (01) ==
LOC: JD.ED 19:01
DX: K82.9 Disease of gallbladder, unspecified (principal); K21.9 Gastro-esophageal reflux disease without esophagitis; Z86.16 Personal history of COVID-19; Z79.899 Other long term (current) drug therapy
CPT/HCPCS: 96374; 96375; 99284; J1170; J2405; J3490

== ENCOUNTER 2024-01-05 15:15 | Inpatient (IN) | payer BC ==
[2024-01-05] MEDS: Sodium Chloride 0.9% 1,000 ML IV ONE (18:05)
[2024-01-05] MEDS: Ondansetron 4 MG/2 ML SDV IVPUSH ONE (18:06)
[2024-01-05] MEDS: HYDROmorphone 0.5 MG/0.5 ML Syringe IVPUSH ONE (18:06)
[2024-01-05] MEDS: Sodium Chloride 0.9% 10 ML Syringe FLUSH PRN (18:07)
[2024-01-05 18:11] LABS: BASOPHILS PERCENT AUTO 0.3 % (0.0-1.0); HEMATOCRIT 41.3 % (37.0-47.0); HEMOGLOBIN 14.2 gm/dl (12.0-16.0); IMMATURE GRAN ABSOLUTE AUTO 0.02 K/mm3 (0.00-0.05); IMMATURE GRAN PERCENT AUTO 0.3 % (0.0-0.4); LYMPHOCYTES ABSOLUTE AUTO 1.7 K/mm3 (1.0-4.8); LYMPHOCYTES PERCENT AUTO 23.1 % (24.0-44.0); MEAN CORPUSCULAR HEMOGLOBIN 31.3 pg (28.0-32.0); MEAN CORPUSCULAR HGB CONC 34.4 g/dl (32.0-36.0); MEAN CORPUSCULAR VOLUME 91.2 fl (83.0-99.0); MEAN PLATELET VOLUME 9.4 fl (9.4-12.3); MONOCYTES ABSOLUTE AUTO 0.5 K/mm3 (0.0-0.8); MONOCYTES PERCENT AUTO 7.1 % (0.0-8.0); NEUTROPHILS ABSOLUTE AUTO 5.1 K/mm3 (1.8-7.7); NEUTROPHILS PERCENT AUTO 69.2 % (41.0-71.0); PLATELET COUNT,PLT 239 K/mm3 (150-400); RED BLOOD CELL COUNT 4.53 M/mm3 (4.10-5.30); WHITE BLOOD CELL COUNT,WBC 7.43 K/mm3 (3.9-11.3)
[2024-01-05 18:29] LABS: A/G RATIO 1.2 (1-2); ALBUMIN 4.1 g/dl (3.4-5.0); ANION GAP 12.8 (5-15); BILIRUBIN TOTAL 3.2 mg/dL (0.2-1.0); CALCIUM 9.4 mg/dL (8.5-10.1); CREATININE 0.8 mg/dL (0.55-1.02); EST CRCL DRUG DOSING (CG) 96.26 mL/min; MAGNESIUM 2.1 mg/dL (1.8-2.4); POTASSIUM,K 3.8 mEq/L (3.5-5.1); PROTEIN TOTAL,TP 7.5 g/dl (6.4-8.2)
[2024-01-05 20:19] LABS: APPEARANCE,URINE CLEAR (Clear); BILIRUBIN,URINE 3+ (Negative); COLOR,URINE AMBER (Yellow); GLUCOSE,URINE NEGATIVE (Negative); KETONES,URINE 3+ (Negative); LEUKOCYTE ESTERASE,URINE NEGATIVE (Negative); NITRITE,URINE NEGATIVE (Negative); OCCULT BLOOD,URINE NEGATIVE (Negative); PH,URINE 5.5 (5.0-8.0); PROTEIN,URINE NEGATIVE (Negative)
[2024-01-05] MEDS: Prochlorperazine 10 MG/2 ML SDV IVPUSH ONE (20:25)
[2024-01-05] MEDS: Piperacillin/Tazobactam 4.5 GM in Sodium Chloride 0.9% 100 ML IV ONE (20:56)
[2024-01-05] MEDS: Sodium Chloride 0.9% 1,000 ML IV SCH (20:57)
[2024-01-05] MEDS: Iopamidol 612 MG/ML 30 ML SDV IVPUSH ONE (21:06)
[2024-01-05] MEDS: Iopamidol 612 MG/ML 100 ML Bottle IVPUSH ONE (21:06)
[2024-01-05] MEDS: Sodium Chloride 0.9% 10 ML Syringe FLUSH ONE (21:06)
[2024-01-05] MEDS ORDERED: Naloxone 0.4 MG/ML SDV IVPUSH PRN (21:51)
[2024-01-05] MEDS ORDERED: HYDROmorphone 0.5 MG/0.5 ML Syringe IVPUSH PRN (21:51)
[2024-01-05] MEDS ORDERED: Ondansetron 4 MG/2 ML SDV IV PRN (21:51)
[2024-01-05] MEDS ORDERED: traMADol 50 MG Tab PO PRN (21:59)
[2024-01-05] MEDS: Acetaminophen 325 MG Tab PO SCH (22:28)
[2024-01-05] MEDS: Ibuprofen 600 MG Tab PO SCH (22:29)
[2024-01-06] MEDS: Piperacillin/Tazobactam 4.5 GM in Sodium Chloride 0.9% 100 ML IV SCH (02:13)
[2024-01-06] MEDS: Sodium Chloride 0.9% 1,000 ML IV SCH (05:22)
[2024-01-06 05:41] LABS: BASOPHILS PERCENT AUTO 0.4 % (0.0-1.0); HEMATOCRIT 36.5 % (37.0-47.0); IMMATURE GRAN ABSOLUTE AUTO 0.01 K/mm3 (0.00-0.05); IMMATURE GRAN PERCENT AUTO 0.2 % (0.0-0.4); LYMPHOCYTES ABSOLUTE AUTO 2.1 K/mm3 (1.0-4.8); LYMPHOCYTES PERCENT AUTO 45.9 % (24.0-44.0); MEAN CORPUSCULAR HEMOGLOBIN 31.5 pg (28.0-32.0); MEAN CORPUSCULAR HGB CONC 33.7 g/dl (32.0-36.0); MEAN CORPUSCULAR VOLUME 93.4 fl (83.0-99.0); MEAN PLATELET VOLUME 9.7 fl (9.4-12.3); MONOCYTES ABSOLUTE AUTO 0.4 K/mm3 (0.0-0.8); MONOCYTES PERCENT AUTO 9.6 % (0.0-8.0); NEUTROPHILS PERCENT AUTO 43.9 % (41.0-71.0); PLATELET COUNT,PLT 201 K/mm3 (150-400); RED BLOOD CELL COUNT 3.91 M/mm3 (4.10-5.30); WHITE BLOOD CELL COUNT,WBC 4.47 K/mm3 (3.9-11.3)
[2024-01-06 05:44] LABS: HEMOGLOBIN 12.3 gm/dl (12.0-16.0)
[2024-01-06 05:59] LABS: A/G RATIO 1.1 (1-2); ALBUMIN 3.2 g/dl (3.4-5.0); ANION GAP 12.7 (5-15); BILIRUBIN TOTAL 3.9 mg/dL (0.2-1.0); BUN/CREATININE RATIO 5.6 (14-18); CALCIUM 8.3 mg/dL (8.5-10.1); CREATININE 0.9 mg/dL (0.55-1.02); EST CRCL DRUG DOSING (CG) 85.56 mL/min; MAGNESIUM 1.9 mg/dL (1.8-2.4); PHOSPHORUS 4.5 mg/dL (2.6-4.7); POTASSIUM,K 3.7 mEq/L (3.5-5.1)
[2024-01-06 06:46] LABS: BILIRUBIN DIRECT 2.9 mg/dl (0.0-0.2)
[2024-01-06] MEDS: Levothyroxine 100 MCG Tab PO SCH (07:20)
== END 2024-01-06 17:54 ==
LOC: JD.ED 15:15 → JD.MS 21:51
PROVIDERS: ADMIT Student in an Organized Health Care Education/Training Program; ATTEND Student in an Organized Health Care Education/Training Program
DX: K80.42 Calculus of bile duct with acute cholecystitis without obstruction (principal); D64.9 Anemia, unspecified; F32.A Depression, unspecified; F41.9 Anxiety disorder, unspecified; K21.9 Gastro-esophageal reflux disease without esophagitis; Z86.16 Personal history of COVID-19; Z79.899 Other long term (current) drug therapy
CPT/HCPCS: 36415; 74178; 74178-26; 76705; 76705-26; 80053; 81003; 82248; 83690; 83735; 84100; 85025; 86850; 86900; 86901; 94760; 96361; 96365; 96375; 99283; 99285-25; A9270-GY; J0780; J1170; J2405; J2543; J3490; J7030; Q9967

== ENCOUNTER 2024-08-22 12:09 | Inpatient (IN) | payer BC ==
[2024-08-22] MEDS ORDERED: Lidocaine 1% 50 ML MDV INJECT PRN (12:26)
[2024-08-22] MEDS ORDERED: Sodium Chloride 0.9% 10 ML Syringe FLUSH PRN (12:26)
[2024-08-22] MEDS ORDERED: Ondansetron 4 MG/2 ML SDV IVPUSH PRN (12:26)
[2024-08-22] MEDS ORDERED: Oxytocin/0.9 % Sodium Chloride 30 UNIT/500 ML BAG IV SCH (12:30)
[2024-08-22 13:04] LABS: BASOPHILS PERCENT AUTO 0.1 % (0.0-1.0); EOSINOPHILS PERCENT AUTO 0.4 % (0.0-6.0); HEMATOCRIT 38.2 % (37.0-47.0); HEMOGLOBIN 12.9 gm/dl (12.0-16.0); IMMATURE GRAN ABSOLUTE AUTO 0.02 K/mm3 (0.00-0.05); IMMATURE GRAN PERCENT AUTO 0.2 % (0.0-0.4); LYMPHOCYTES ABSOLUTE AUTO 1.9 K/mm3 (1.0-4.8); LYMPHOCYTES PERCENT AUTO 23.3 % (24.0-44.0); MEAN CORPUSCULAR HEMOGLOBIN 30.1 pg (28.0-32.0); MEAN CORPUSCULAR HGB CONC 33.8 g/dl (32.0-36.0); MEAN PLATELET VOLUME 10.3 fl (9.4-12.3); MONOCYTES ABSOLUTE AUTO 0.6 K/mm3 (0.0-0.8); MONOCYTES PERCENT AUTO 7.2 % (0.0-8.0); NEUTROPHILS ABSOLUTE AUTO 5.7 K/mm3 (1.8-7.7); NEUTROPHILS PERCENT AUTO 68.8 % (41.0-71.0); PLATELET COUNT,PLT 209 K/mm3 (150-400); RED BLOOD CELL COUNT 4.29 M/mm3 (4.10-5.30); WHITE BLOOD CELL COUNT,WBC 8.34 K/mm3 (3.9-11.3)
[2024-08-22] MEDS: Nalbuphine 10 MG/1 ML Vial IVPUSH PRN (13:29)
[2024-08-22] MEDS: Lactated Ringers 1,000 ML IV SCH (13:30)
[2024-08-22] MEDS: Oxytocin/0.9 % Sodium Chloride 30 UNIT/500 ML BAG IV SCH (13:37)
[2024-08-22] MEDS ORDERED: diphenhydrAMINE 50 MG/ML SDV IVPUSH PRN (19:17)
[2024-08-22] MEDS ORDERED: ePHEDrine 50 MG/ML SDV IVPUSH PRN (19:17)
[2024-08-22] MEDS: fentaNYL 100 MCG/2 ML SDV EPIDUR PRN (19:30)
[2024-08-22] MEDS: Bupivacaine/fentaNYL/NS 100 ML Bag EPIDUR PRN (19:50)
[2024-08-22] MEDS: Sodium Chloride 0.9% 10 ML Syringe FLUSH SCH (21:42)
[2024-08-23] MEDS: Ibuprofen 600 MG Tab PO SCH (03:28)
[2024-08-23] MEDS: Benzocaine/Menthol 20%-0.5% Spray 78 GM Cannister TOP PRN (04:00)
[2024-08-23] MEDS: Levothyroxine 100 MCG Tab PO SCH (06:43)
[2024-08-23] MEDS: Levothyroxine 50 MCG Tab PO SCH (06:43)
[2024-08-23] MEDS: Witch Hazel Medicated Pads 40/Jar TOP PRN (06:44)
[2024-08-23] MEDS ORDERED: Bupivacaine 0.25% 10 ML SDV ONE (07:00)
[2024-08-23] MEDS: Acetaminophen 325 MG Tab PO PRN (11:30)
[2024-08-23] MEDS: Docusate Sodium 100 MG Cap PO PRN (11:30)
== END 2024-08-24 09:30 | disposition home or self-care (01) | DRG 560 ==
LOC: JD.OBCHECK 12:09 → JD.OB 12:11 → JD.OBCHECK 12:26 → OBSVTOIN 08-23 01:23 → JD.OB 08-23 01:24
PROVIDERS: ADMIT Obstetrics & Gynecology; ATTEND Obstetrics & Gynecology
PROC: 10E0XZZ Delivery of Products of Conception, External Approach (ICD-10-PCS; principal; 2024-08-23)
PROC: 10907ZC Drainage of Amniotic Fluid, Therapeutic from Products of Conception, Via Natural or Artificial Opening (ICD-10-PCS; 2024-08-23)
PROC: 0HQ9XZZ Repair Perineum Skin, External Approach (ICD-10-PCS; 2024-08-23)
PROC: 0U7C7DJ Dilation of Cervix with Intraluminal Device, Temporary, Via Natural or Artificial Opening (ICD-10-PCS; 2024-08-23)
PROC: 3E033VJ Introduction of Other Hormone into Peripheral Vein, Percutaneous Approach (ICD-10-PCS; 2024-08-23)
PROC: 3E0R3BZ Introduction of Anesthetic Agent into Spinal Canal, Percutaneous Approach (ICD-10-PCS; 2024-08-23)
PROC: 00HU33Z Insertion of Infusion Device into Spinal Canal, Percutaneous Approach (ICD-10-PCS; 2024-08-23)
DX: O35.BXX0 Maternal care for other (suspected) fetal abnormality and damage, fetal cardiac anomalies, not applicable or unspecified (principal); Z37.0 Single live birth; Q79.60 Ehlers-Danlos syndrome, unspecified; O70.0 First degree perineal laceration during delivery; Z3A.39 39 weeks gestation of pregnancy
CPT/HCPCS: 36415; 51701; 59025; 59409; 85025; 86592; 86850; 86900; 86901; A9270-GY; C1726; C1758; J0665; J2300; J3010; J3490; J7120; J7999